=== PATIENT | female | born 1940 | race Caucasian/White ===

== ENCOUNTER 2019-11-24 08:29 | Inpatient (IN) ==
--- NOTE | 2019-11-10 13:33 | ANES ---
Anesthesia Pre Procedure Eval HOME MEDICATIONS Aspirin 81 mg PO DAILY 05/25/16 [Last Taken Unknown] Calcium Carbonate [Calcium] 500 mg PO BID 05/25/16 [Last Taken Unknown] Cholecalciferol (Vitamin D3) [Vitamin D3] 1,000 unit PO BID 05/25/16 [Last Taken Unknown] Multivit-Min/FA/Lycopen/Lutein [Central-Aylin For Seniors] 1 tab PO DAILY 05/25/16 [Last Taken Unknown] acetaminophen 500 mg tablet 1,000 mg PO Q6H PRN tab 04/27/18 [Last Taken Unknown] diphenhydramine 25 mg-acetaminophen 500 mg tablet 2 tab PO HS PRN tab 04/27/18 [Last Taken Unknown] triamcinolone acetonide 0.1 % topical cream 1 applic TP TID 04/27/18 [Last Taken Unknown] clopidogrel 75 mg tablet See Rx Instructions .ROUTE .COMPLEX #90 tablet 11/26/18 [Last Taken Unknown] folic acid 0.8 mg capsule 0.8 mg PO DAILY cap 12/21/18 [Last Taken Unknown] methotrexate sodium 2.5 mg tablet 12.5 mg PO QWEEK tab 12/21/18 [Last Taken Unknown] atorvastatin 40 mg tablet See Rx Instructions .ROUTE .COMPLEX #30 tablet 07/22/19 [Last Taken Unknown] tramadol 50 mg tablet 50 mg PO Q4H PRN tab 07/27/19 [Last Taken Unknown] alendronate 70 mg tablet See Rx Instructions .ROUTE .COMPLEX #4 tablet 08/11/19 [Last Taken Unknown] amlodipine 5 mg tablet See Rx Instructions .ROUTE .COMPLEX #90 tablet 08/11/19 [Last Taken Unknown] lisinopril 40 mg tablet 40 mg PO DAILY #30 tab 10/08/19 [Last Taken Unknown] levothyroxine 75 mcg tablet 75 mcg PO DAILY #60 tab 10/11/19 [Last Taken Unknown] Allergies/Adverse Reactions: Allergies Allergy/AdvReac Type Severity Reaction Status Date / Time oxycodone HCl [From Percocet] Allergy Mild Itching Verified 07/28/19 09:54 adhesive tape AdvReac Severe Blisters Verified 11/10/19 08:52 Sulfa (Sulfonamide AdvReac Mild rash Verified 07/28/19 09:54 Antibiotics) - Planned Procedure Planned Procedure: LT Arthroplasty Total Hip Medication List Reviewed:: Yes Allergies Verified: Yes Medical History (Last Reviewed 11/10/19 @ 13:31 by Jareth Rivera CRNA) Total replacement of hip (Chronic) Incontinence (Chronic) Onset Date: ~12/23/15 Upper back pain (Chronic) Onset Date: ~12/23/15 Rheumatoid arthritis (Chronic) Onset Date: Unknown Peripheral vascular disease (Chronic) Onset Date: Unknown Osteoporosis (Chronic) Onset Date: ~09/16/17 Osteoarthritis (Chronic) Onset Date: ~05/2013 Hypothyroidism (Chronic) Onset Date: Unknown Hypertension (Chronic) Onset Date: ~09/10/13 Hyperlipidemia (Chronic) Onset Date: Unknown High risk medication use (Chronic) Onset Date: ~12/23/15 CVA (cerebral vascular accident) (Chronic) Onset Date: ~2009 x 4 Abnormal mammogram of left breast (Chronic) Onset Date: ~06/08/15 Compression fracture Onset Date: Unknown T12 Hearing loss 50% with hearing aids Influenza vaccine refused wants to receive at a later date 06/29/19. BOBBY [facility] Surgical History (Last Reviewed 11/10/19 @ 13:31 by Jareth Rivera CRNA) H/O colonoscopy Onset Date: Unknown History of hysterectomy Onset Date: ~1974 History of kyphoplasty Onset Date: ~10/02/11 History of total right hip replacement Onset Date: ~03/21/14 Hx of appendectomy Onset Date: ~1949 S/P foot surgery, left Onset Date: ~1988 bilateral 2nd metatarsal head resections Family History (Last Reviewed 11/10/19 @ 13:31 by Jareth Rivera CRNA) Father Cancer prostate, bladder Hyperlipemia Hypertension Arthritis Grandmother Cancer breast Mother Diabetes CHF (congestive heart failure) - Family Anesthesia History Family History:: no untoward family reactions to anesthesia, no familial bleeding tendencies, no family history of clotting disorders, no family history of premature - Airway/Neck/Teeth Within Normal Limits:: Yes Denture Type: Full upper, Partial lower Mallampatti Score: 2 Thyromental (T-M) distance: > 6 cm Mandibulo Hyoid distance: > 3 cm - Respiratory Smoking Status: Never smoker Discussed smoking cessation including day of surgery: No Sleep Apnea currently treated: No Sleep Apnea by current assessment: No Discussed Risks/Treatment of HOANG: No - Cardiovascular Tolerate Activity: Fair Heart Sounds: S1 & S2, Regular - Anesthesia Assessment and Plan ASA Class: PS, III Anesthesia Type Plan: Block - Left ultrasound guided adductor canal nerve block for postop analgesia, Spinal
[~2019-11-24 08:29] MED LIST: MORPHINE SULFATE 15 MG TABLET.SA PO PRN; ROPIVACAINE HCL/PF 100 MG, EPINEPHrine 0.2 MG, KETOROLAC TROMETHAMINE 30 MG in NORMAL S... IJ PRN; TRANEXAMIC ACID 1,000 MG in NORMAL SALINE 100 ML IV PRN; ceFAZolin SODIUM 1 GM VIAL IV PRN
[2019-11-24] MEDS ORDERED: MIDAZOLAM HCL/PF 1 MG/ML VIAL ONE (08:56)
[2019-11-24] MEDS ORDERED: ONDANSETRON HCL/PF 2 MG/ML VIAL ONE (08:57)
[2019-11-24] MEDS ORDERED: DEXAMETHASONE SODIUM PHOSPHATE 10 MG/ML VIAL ONE (08:57)
[2019-11-24] MEDS ORDERED: BUPIVACAINE HCL/PF 10 ML VIAL ONE (08:57)
[2019-11-24] MEDS ORDERED: PROPOFOL VIAL IV ONE (08:57)
[2019-11-24] MEDS ORDERED: EPINEPHrine 1 MG/ML AMPUL ONE (08:58)
[2019-11-24 09:01] LABS: Hematocrit 33.3 % (37.0-47.0); Hemoglobin 9.4 gm/dL (12.5-16.0); Mean Cell Volume 82.8 fl (78-100); Mean Corpuscular Hemoglobin 23.4 pg (27-31); Mean Corpuscular Hgb Conc 28.2 g/dl (32-36); Mean Platelet Volume 8.8 fl (8-12.5); Neutrophil # 4.1 K/mm3 (1.3-6.0); Neutrophil % 63.5 % (42-75.0); Platelet Count 446 K/mm3 (150-450); Red Blood Count 4.02 M/mm3 (4.2-5.4); Red Cell Distribution Width 20.4 % (11.5-14.0); White Blood Count 6.4 K/mm3 (4.0-10.5)
[2019-11-24] MEDS ORDERED: ceFAZolin SODIUM 1 GM VIAL ONE ×2 (09:04→10:40)
[2019-11-24] MEDS: RINGER'S SOLUTION,LACTATED 1,000 ML IV PRN ×2 (09:29→11:15)
[2019-11-24] MEDS ORDERED: MAG HYDROX/ALUMINUM HYD/SIMETH 30 ML UDC PO PRN (12:18)
[2019-11-24] MEDS ORDERED: diphenhydrAMINE HCL 50 MG/ML VIAL IV PRN (12:18)
[2019-11-24] MEDS ORDERED: ONDANSETRON HCL/PF 2 MG/ML VIAL IV PRN (12:18)
[2019-11-24] MEDS ORDERED: MORPHINE SULFATE 2 MG/ML DISP.SYRIN IV PRN (12:18)
[2019-11-24] MEDS ORDERED: MORPHINE SULFATE 10 MG/0.5 ML SYRINGE PO PRN (12:18)
[2019-11-24] MEDS ORDERED: MAGNESIUM HYDROXIDE 30 ML UDC PO PRN (12:18)
--- NOTE | 2019-11-24 12:26 | OR ---
Operative Report - Dictated Report Narrative: Date: 11/24/2019 Preoperative diagnosis: Left hip degenerative joint disease. Postoperative diagnosis: Left hip degenerative joint disease. Procedure: Left total hip arthroplasty. Surgeon: Colby Miller M.D. Compression Molding Machine Setter: Manuel Jeffries PA-C (provided an essential set of skilled, educated and assisted with transfer, positioning, prepping, draping, manipulation, traction, irrigation, suturing, and placement of dressings all of which cannot be performed by the available surgical crew) Anesthesia: Spinal and local periarticular joint injection. Complications: None Specimens: Bone. Estimated blood loss: 100 milliliters. Retained implants: Depuy [place] size 5 femoral stem standard offset. Size 50 millimeter outside diameter 3-hole Lincoln Gription acetabular cup. 50 millimeter outside by 32 millimeter inside diameter highly cross-linked acetabular liner. 32 millimeter diameter +5 millimeter cobalt chromium femoral head. Cancellous 6.5mm screw 30 millimeter length Indications: Mrs. Lazo is a 79-year-old female who has had longstanding left hip pain and arthrosis. This patient was followed in my clinic for period of time with significant complaints of left hip pain consistent with arthritic changes. She failed conservative measures including but not limited to activity modification, passage of time, medications, and other conservative measures. Patient wished to proceed with surgical treatment. The risks, benefits, and alternatives were discussed in clinic. The risks of , blood clots, bleeding, infection, nerve/tendon blood vessel/ injury, malposition of components, dislocation and/or instability of joint, intraoperative fracture, postoperative limited range of motion, persistent pain, failure of components, and need for additional procedures. Patient wished to proceed. Consent was obtained after answering all questions. Procedure: After marking the correct extremity on the floor, the patient was taken to the operating room. A timeout was performed. IV antibiotics consisting of Ancef were administered prior to the procedure. A spinal anesthetic was induced by anesthesia. A Louise catheter was inserted. The patient was then transitioned to a lateral position on a well-padded pegboard. An axillary roll was placed. The head was in neutral position. The non- operative down leg was well-padded with SCD and MAYTE hose in place. The arms were supported and padded to protect from any undue pressure on the bony prominences and nerves. A well-padded anterior and posterior pelvic and chest posts were secured in order to maintain a stable position of the pelvis. This was placed so that the pelvis was perpendicular to the floor. The body was in line with the pelvis. Once it was felt that we had protected all the bony prominences and the patient was well secured with a safety belt as well, the leg was pre-scrubbed with alcohol, prepped and draped in a standard sterile fashion. A standard anterior lateral hip incision was marked out over the greater trochanter. Ioban drapes were then placed. The skin incision was then made. Sharp dissection with a scalpel utilizing cautery for hemostasis was carried out down to the gluteus and iliotibial band fascia. This was split in line with the skin incision. The greater trochanter bursa was excised. The anterior and posterior margins of the abductor tendon were identified. The anterior 1/2-1/3 of the tendon was tagged and reflected off the greater trochanter leaving a sleeve of tendon for repair at the completion of the case. This exposed the underlying hip joint capsule. A limb length stitch was placed in the skin and referencedd off a marifer on the greater trochanter for evaluation of intraoperative limb lengths. An inverted T-type capsulotomy was made extending this up to the brim of the acetabulum. Using Homans to assist with elevation of the soft tissues off the anterior, superior, and inferior aspects of the femoral neck, the hip was then placed in a figure 4 position and the femoral head was dislocated. With the leg in an externally rotated and adducted position, the cutting flag was utilized in order to marifer for a standard femoral neck cut approximately a fingerbreadth above the level of the lesser trochanter. This was done with reference to pre-operative films and overall alignment. This was done while protecting the surrounding soft tissues with Homans. The femoral head was then removed and sized for guidance on preparation of the acetabulum. It was noted that there was loss of articular cartilage on both the femoral head and weightbearing portions of the acetabulum. We then returned the leg to the table and turned our attention to the acetabulum. While protecting the surrounding soft tissues, the labrum and remaining tissue in the fovea were excised using a scalpel and cautery. A series of reamers up to size 50 millimeter were utilized to prepare the acetabulum. The final reamer had good purchase and exposed the bleeding subchondral bone. The acetabulum was then thoroughly irrigated ensuring that all bony and cartilaginous materials were removed, and the final acetabular shell was impacted into place. This was placed in approximately 45 degrees of abduction and 20 degrees of anteversion utilizing the outrigger and body axis for alignment. This had a good press fit. 1 6.5mm cancellous screw was placed in the superior posterior quadrant of the acetabulum. The shell was then thoroughly irrigated and the final polyethylene was impacted into place ensuring that it seated completely. This was then protected with a sponge while we returned our attention to the femur. With the leg in a figure 4 position, utilizing Homans for soft tissue protection, a box cutting osteotome, followed by Charnley awl, followed by serial reamers and broaches were utilized in order to prepare the femur. It was found that a size 5 broach gave good axial and rotational stability. The calcar reamer was utilized in order to clean up the cut edges. The proximal femur was visualized to ensure that there were no signs of fracture. A series of heads and necks were trialed. It was found that a standard offset neck and a + 5 femoral head gave good overall stability. There was minimal longitudinal instability. With the leg in the position of sleep, the femoral head was well covered. Hip range of motion was able to reach full extension and external rotation to greater than 75 degrees prior to impingement along the posterior acetabulum. The hip was able to be flexed to greater than 90 degrees with internal rotation greater than 60 degrees prior to anterior impingement. The limb lengths were near equal based on comparison to the contralateral side and the prior placed limb length stitch. At this point it was felt these were the appropriately sized femoral components as well as neck and femoral head. The trial implants were removed. The femur was thoroughly irrigated. The final implants were impacted into place, and the hip was reduced. After ensuring that there was no damage to the proximal femur, the standard periarticular joint injection of ropivacaine, Toradol, and epinephrine were injected into the joint capsule and surrounding soft tissues. Anesthesia then administered intravenous tranexamic acid. The capsule was repaired with a single interrupted #1 Vicryl. The abductor tendon was repaired to the greater trochanter utilizing #5 Ethibond through drill holes. This was oversewn with #1 Vicryl. The fascia was closed with interrupted #1 Vicryl and a running strata fix barbed suture. The wounds were thoroughly irrigated as we closed in layers. The deep and subcutaneous fat layers were closed with 0 and 3-0 Vicryl respectively. The subcutaneous tissue was closed with a running 3-0 Vicryl and the skin ray. All sponge, needle, blade, and instrument counts were correct prior to closing the wounds. Sterile dressings consisting of xeroform, 4 x 4's, and Tegaderm were applied. The patient was awoken and transferred to her hospital bed and then to the postanesthesia care unit in stable condition. Postoperative condition: The plan is to admit to the medical/surgical inpatient floor postoperatively. There will be a projected 1 to 3 day hospital stay. Postoperatively 24 hours of IV antibiotics, pain control, physical therapy, occupational therapy, and medical comanagement will be utilized. Patient will be weightbearing as tolerated with anterior hip precautions. Postoperative films will be obtained in the recovery room.
--- NOTE | 2019-11-24 12:39 | ANES ---
Post Anesthesia Discharge - Transfer of Care Transfer of Care handoff given to nurse: Yes - Discharge from PACU Discharge from PACU when meets criteria: Yes - Awake and comfortable.
[2019-11-24] MEDS: DEXTROSE 5%-LACTATED RINGERS 1,000 ML IV PRN ×2 (13:25→21:25)
[2019-11-24] MEDS: TRIAMCINOLONE ACETONIDE 15 APPL TUBE TP SCH ×2 (14:23→20:56)
[2019-11-24] MEDS: ceFAZolin SODIUM 1 GM in DEXTROSE 5 % IN WATER 100 ML IV SCH ×4 (14:26→20:53)
[2019-11-24] MEDS: HYDROcodone/ACETAMINOPHEN 1 EACH TABLET PO PRN ×2 (15:27→19:20)
--- NOTE | 2019-11-24 15:58 | ANES ---
Post Anesthesia Assessment - Vital Signs Vitals: Last Vital Signs Temp 36.5 C 11/24/19 13:00 Pulse 74 11/24/19 13:00 Resp 16 11/24/19 13:00 BP 132/60 11/24/19 13:00 Pulse Ox 95 11/24/19 13:00 Airway Patency: Normal - Mental Status Level Of Consciousness: Awake, Alert, Appropriate - Pain Level Pain Score: 5 - N/V Assessment Nausea/Vomiting Presence: None Dehydration:: No
[2019-11-24] MEDS: SENNOSIDES/DOCUSATE SODIUM 1 TAB TABLET PO SCH (20:57)
[2019-11-24] MEDS: CALCIUM CARBONATE 500 MG TAB.CHEW PO SCH (20:58)
[2019-11-24] MEDS: ROSUVASTATIN CALCIUM 20 MG TABLET PO SCH (20:58)
[2019-11-24] MEDS: CHOLECALCIFEROL 1,000 UNIT CAPSULE PO SCH (20:59)
[2019-11-25] MEDS: HYDROcodone/ACETAMINOPHEN 1 EACH TABLET PO PRN ×8 (00:08→21:59)
[2019-11-25] MEDS: ZOLPIDEM TARTRATE 5 MG TABLET PO PRN (00:09)
[2019-11-25] MEDS: ceFAZolin SODIUM 1 GM in DEXTROSE 5 % IN WATER 100 ML IV SCH ×2 (02:03)
[2019-11-25 06:30] LABS: Hematocrit 25.7 % (37.0-47.0); Mean Cell Volume 81.8 fl (78-100); Mean Corpuscular Hemoglobin 23.2 pg (27-31); Mean Corpuscular Hgb Conc 28.4 g/dl (32-36); Platelet Count 402 K/mm3 (150-450); Red Blood Count 3.14 M/mm3 (4.2-5.4); Red Cell Distribution Width 19.9 % (11.5-14.0); White Blood Count 12.2 K/mm3 (4.0-10.5)
[2019-11-25 06:43] LABS: Anion Gap 14.5 mmol/L (6.8-13.8); BUN/Creatinine Ratio 15.1 (9.0-21.6); Calcium * 8.1 mg/dL (7.9-10.9); Carbon Dioxide 21.8 mmol/L (24-32.6); Estimated Creat Clear 46.4; Potassium 4.3 mmol/L (3.4-4.6)
[2019-11-25 06:54] LABS: Hemoglobin 7.3 gm/dL (12.5-16.0)
[2019-11-25] MEDS: LEVOTHYROXINE SODIUM 75 MCG TABLET PO SCH (07:53)
[2019-11-25] MEDS: MULTIVIT-MIN/FA/LYCOPEN/LUTEIN 1 TAB TABLET PO SCH (09:21)
[2019-11-25] MEDS: LISINOPRIL 40 MG TABLET PO SCH (09:21)
[2019-11-25] MEDS: CHOLECALCIFEROL 1,000 UNIT CAPSULE PO SCH ×2 (09:21→20:54)
[2019-11-25] MEDS: FOLIC ACID 0.4 MG TABLET PO SCH (09:21)
[2019-11-25] MEDS: CALCIUM CARBONATE 500 MG TAB.CHEW PO SCH ×2 (09:21→20:55)
[2019-11-25] MEDS: TRIAMCINOLONE ACETONIDE 15 APPL TUBE TP SCH ×2 (09:22→17:00)
[2019-11-25] MEDS: FERROUS SULFATE PO SCH (09:32)
[2019-11-25] MEDS: ENOXAPARIN SODIUM 40 MG/0.4 ML SYRG SC SCH (11:54)
--- NOTE | 2019-11-25 12:45 | PN ---
Subjective - Date and Time Seen Date: 11/25/19 Time: 07:45 Subjective Narrative: Subjective: Reports no significant concerns. She has not worked with therapy yet. Pain is well-controlled. Voiding without any complications. Tolerating by mouth intake. Denies any nausea or vomiting. Denies calf pain. Slept well. Physical exam: Alert and oriented to person, place and time Left lower extremity: Palpable dorsalis pedis pulse. Sensation grossly intact to light touch. Dressings clean and dry. Able to flex and extend ankle and toes. No excessive drainage. Calf and thigh are soft and nontender. Assessment: Postop day 1 status post left total hip arthroplasty. Plan: Due to the need for pain control, post-operative limited mobility, protection of the surgical site and joint, monitoring of the wound, and the management of chronic medical conditions, she requires continued inpatient care. Continue with physical and occupational therapy weightbearing as tolerated. Continue with anticoagulation. 24 hours postoperative prophylactic antibiotics. Pain control with goal to rely on oral medications. Continue bowel regimen. Will need 6 weeks with walker or assitive device to protect joint while ambulating during the recovery process. Discharge planning. Discontinue Louise catheter. She has noted postoperative anemia combined with preoperative anemia which would likely increase in the next 24 to 48 hours and thus I am recommending a transfusion today. Repeat hemogram in a.m. in order to monitor for response to transfusion. Objective - Vitals Vitals: Last Vital Signs Temp 36.9 C 11/25/19 09:00 Pulse 93 11/25/19 09:21 Resp 18 11/25/19 09:00 BP 137/70 11/25/19 09:21 Pulse Ox 98 11/25/19 02:58 - Abnormal Lab Findings Abnormal Lab Findings: Abnormal Lab Results 11/25/19 11/25/19 11/25/19 Range/Units 06:26 06:26 08:13 WBC 12.2 H D (4.0-10.5) K/mm3 RBC 3.14 L (4.2-5.4) M/mm3 Hgb 7.3 L* D (12.5-16.0) gm/dL Hct 25.7 L (37.0-47.0) % MCH 23.2 L (27-31) pg MCHC 28.4 L (32-36) g/dl RDW 19.9 H (11.5-14.0) % Carbon Dioxide 21.8 L (24-32.6) mmol/L Anion Gap 14.5 H (6.8-13.8) mmol/L Crossmatch See Detail Cauti Physician Documentation - Urinary Catheter Management Urethral (Louise) Date of Insertion: 11/24/19 Time of Insertion: 10:15 Assessment/Plan - Problems/Diagnosis (1) LOVE (dyspnea on exertion) Problem: Acute (2) CVA (cerebral vascular accident) Problem: Chronic Qualifiers: (3) HLD (hyperlipidemia) Problem: Chronic Qualifiers: (4) HTN (hypertension) Problem: Chronic Qualifiers: (5) Hearing loss Problem: Chronic Qualifiers: (6) Hypothyroidism Problem: Chronic Qualifiers: (7) Incontinence Problem: Chronic (8) Osteoporosis Problem: Chronic (9) PVD (peripheral vascular disease) Problem: Chronic (10) Rheumatoid arthritis Problem: Chronic Qualifiers: (11) Total replacement of hip Problem: Acute (12) Acute on chronic blood loss anemia Problem: Acute
[2019-11-25] MEDS: ROSUVASTATIN CALCIUM 20 MG TABLET PO SCH (20:54)
[2019-11-25] MEDS: SENNOSIDES/DOCUSATE SODIUM 1 TAB TABLET PO SCH (20:55)
[2019-11-26] MEDS: HYDROcodone/ACETAMINOPHEN 1 EACH TABLET PO PRN ×3 (00:01→08:31)
[2019-11-26] MEDS: ZOLPIDEM TARTRATE 5 MG TABLET PO PRN (00:02)
[2019-11-26 06:42] LABS: Hematocrit 37.4 % (37.0-47.0); Hemoglobin 11.5 gm/dL (12.5-16.0); Mean Cell Volume 82.6 fl (78-100); Mean Corpuscular Hemoglobin 25.4 pg (27-31); Mean Corpuscular Hgb Conc 30.7 g/dl (32-36); Platelet Count 444 K/mm3 (150-450); Red Blood Count 4.53 M/mm3 (4.2-5.4); Red Cell Distribution Width 19.6 % (11.5-14.0); White Blood Count 12.3 K/mm3 (4.0-10.5)
[2019-11-26] MEDS: LEVOTHYROXINE SODIUM 75 MCG TABLET PO SCH (07:21)
[2019-11-26] MEDS: FOLIC ACID 0.4 MG TABLET PO SCH (08:32)
[2019-11-26] MEDS: MULTIVIT-MIN/FA/LYCOPEN/LUTEIN 1 TAB TABLET PO SCH (08:32)
[2019-11-26] MEDS: LISINOPRIL 40 MG TABLET PO SCH (08:33)
[2019-11-26] MEDS: CHOLECALCIFEROL 1,000 UNIT CAPSULE PO SCH ×2 (08:33→21:06)
[2019-11-26] MEDS: CALCIUM CARBONATE 500 MG TAB.CHEW PO SCH ×2 (08:34→21:07)
[2019-11-26] MEDS: FERROUS SULFATE PO SCH (08:35)
[2019-11-26] MEDS: TRIAMCINOLONE ACETONIDE 15 APPL TUBE TP SCH ×3 (08:36→19:46)
--- NOTE | 2019-11-26 09:27 | PN ---
Subjective - Date and Time Seen Date: 11/26/19 Time: 09:22 Subjective Narrative: Patient reports that she does not feel she has good pain control. She states when she gets up with therapy she is having difficulty getting going. Therapy reports when she is moving she does pretty well. Patient reports she did have a rough night and did have a little bit of confusion in the night but that is resolved. She reports no stomach problems and is eating well. Objective Objective Narrative: Patient currently sitting in chair. She is dressed. She is neurovascular intact left lower extremity. She is able to plantarflex and dorsiflex ankle. Alert oriented and cooperative exam. Does not appear in any distress. - Vitals Vitals: Last Vital Signs Temp 37.3 C 11/26/19 02:17 Pulse 103 H 11/26/19 08:33 Resp 16 11/26/19 02:17 BP 154/76 H 11/26/19 08:33 Pulse Ox 93 11/26/19 02:17 - Abnormal Lab Findings Abnormal Lab Findings: Abnormal Lab Results 11/25/19 11/26/19 Range/Units 08:13 06:37 WBC 12.3 H (4.0-10.5) K/mm3 Hgb 11.5 L (12.5-16.0) gm/dL MCH 25.4 L (27-31) pg MCHC 30.7 L (32-36) g/dl RDW 19.6 H (11.5-14.0) % Crossmatch See Detail - Exam Constitutional: Present: Alert, Oriented x3, Cooperative, No distress Cauti Physician Documentation - Urinary Catheter Management Urethral (Louise) Date of Insertion: 11/24/19 Time of Insertion: 10:15 Assessment/Plan - Problems/Diagnosis (1) Status post total hip replacement, left Problem: Acute Narrative: Patient and family decided that they would like to get into a [facility] for skilled care. Patient has been somewhat slow to progress. special services coordinator is going to work on placement. Continue physical therapy. Continue pain control I will modify her pain medicines today. Continue anticoagulation. With regards to her acute blood loss anemia she did get a transfusion and her hemoglobin has improved to 11.5. She does not appear to be symptomatic at this point time. Most likely she will not obtain placement in alf over the weekend and may be here through Friday. (2) Acute blood loss anemia Problem: Acute (3) HTN (hypertension) Problem: Chronic Qualifiers: (4) PVD (peripheral vascular disease) Problem: Chronic (5) Hypertension Problem: Chronic (6) Hyperlipidemia Problem: Chronic
[2019-11-26] MEDS ORDERED: oxyCODONE HCL/ACETAMINOPHEN 1 TAB TABLET PO PRN (09:29)
[2019-11-26] MEDS: MORPHINE SULFATE 10 MG/0.5 ML SYRINGE PO PRN ×3 (11:32→21:19)
[2019-11-26] MEDS: ENOXAPARIN SODIUM 40 MG/0.4 ML SYRG SC SCH (11:34)
[2019-11-26] MEDS: SENNOSIDES/DOCUSATE SODIUM 1 TAB TABLET PO SCH (21:06)
[2019-11-26] MEDS: ROSUVASTATIN CALCIUM 20 MG TABLET PO SCH (21:07)
[2019-11-27] MEDS: MORPHINE SULFATE 10 MG/0.5 ML SYRINGE PO PRN ×5 (02:40→19:38)
[2019-11-27] MEDS: ACETAMINOPHEN 500 MG TABLET PO PRN ×2 (02:42→19:37)
[2019-11-27] MEDS: LEVOTHYROXINE SODIUM 75 MCG TABLET PO SCH (07:38)
[2019-11-27] MEDS: MULTIVIT-MIN/FA/LYCOPEN/LUTEIN 1 TAB TABLET PO SCH (08:09)
[2019-11-27] MEDS: CHOLECALCIFEROL 1,000 UNIT CAPSULE PO SCH ×2 (08:09→20:56)
[2019-11-27] MEDS: FOLIC ACID 0.4 MG TABLET PO SCH (08:09)
[2019-11-27] MEDS: FERROUS SULFATE PO SCH (08:09)
[2019-11-27] MEDS: CALCIUM CARBONATE 500 MG TAB.CHEW PO SCH ×2 (08:09→20:56)
[2019-11-27] MEDS: LISINOPRIL 40 MG TABLET PO SCH (08:10)
[2019-11-27] MEDS: TRIAMCINOLONE ACETONIDE 15 APPL TUBE TP SCH ×4 (08:11→17:14)
--- NOTE | 2019-11-27 10:35 | PN ---
Subjective - Date and Time Seen Date: 11/27/19 Time: 10:31 Subjective Narrative: No events overnight. Pain controlled. Progressing well with PT. Objective - Vitals Vitals: Last Vital Signs Temp 36.9 C 11/27/19 08:32 Pulse 80 11/27/19 08:32 Resp 18 11/27/19 08:32 BP 132/68 11/27/19 08:32 Pulse Ox 94 11/27/19 08:32 - Exam Exam Narrative: Gen: Alert, oriented x4 Resp: breathing non-labored on room air MSK: LLE--> dressing with scant amount of SS drainage, minimal pain with passive motion of hip, SILT, distal cap refill brisk Cauti Physician Documentation - Urinary Catheter Management Urethral (Louise) Date of Insertion: 11/24/19 Time of Insertion: 10:15 Assessment/Plan - Problems/Diagnosis (1) Status post total hip replacement, left Problem: Acute Narrative: 79 yo F s/p L total hip arthroplasty. -WBAT, anterior precautions. -reg diet -oral pain meds -PT/OT -DVT ppx: mikhail, SCDs, paula raines -dispo: planning for d/c to SNF on Friday
[2019-11-27] MEDS: ENOXAPARIN SODIUM 40 MG/0.4 ML SYRG SC SCH (11:15)
[2019-11-27] MEDS: ROSUVASTATIN CALCIUM 20 MG TABLET PO SCH (20:55)
[2019-11-27] MEDS: SENNOSIDES/DOCUSATE SODIUM 1 TAB TABLET PO SCH (20:55)
[2019-11-28] MEDS: MORPHINE SULFATE 10 MG/0.5 ML SYRINGE PO PRN ×6 (05:01→22:54)
[2019-11-28] MEDS: LEVOTHYROXINE SODIUM 75 MCG TABLET PO SCH (07:32)
[2019-11-28] MEDS: CALCIUM CARBONATE 500 MG TAB.CHEW PO SCH ×2 (08:19→20:45)
[2019-11-28] MEDS: CHOLECALCIFEROL 1,000 UNIT CAPSULE PO SCH ×2 (08:19→20:46)
[2019-11-28] MEDS: MULTIVIT-MIN/FA/LYCOPEN/LUTEIN 1 TAB TABLET PO SCH (08:19)
[2019-11-28] MEDS: LISINOPRIL 40 MG TABLET PO SCH (08:19)
[2019-11-28] MEDS: TRIAMCINOLONE ACETONIDE 15 APPL TUBE TP SCH ×3 (08:20→17:02)
[2019-11-28] MEDS: FOLIC ACID 0.4 MG TABLET PO SCH (08:20)
[2019-11-28] MEDS: FERROUS SULFATE PO SCH (08:20)
--- NOTE | 2019-11-28 11:11 | PN ---
Subjective - Date and Time Seen Date: 11/28/19 Time: 11:10 Subjective Narrative: Patient reports no acute events. She rates her pain as a 45/10. She notes her pain is worse with weightbearing better with rest. She otherwise has no significant complaints. Objective - Vitals Vitals: Last Vital Signs Temp 37.5 C 11/28/19 10:37 Pulse 84 11/28/19 10:37 Resp 16 11/28/19 10:37 BP 115/60 11/28/19 10:37 Pulse Ox 94 11/28/19 10:37 - Exam Constitutional: Present: Alert, Cooperative Extremity: Present: other - LLE--> sensation intact light touch, 5/5 ankle plantarflexion dorsiflexion, sensation intact light touch, bandages clean/dry/intact, diffuse tenderness about left hip Cauti Physician Documentation - Urinary Catheter Management Urethral (Louise) Date of Insertion: 11/24/19 Time of Insertion: 10:15 Assessment/Plan Plan Narrative: 79 yo F s/p L total hip arthroplasty. -WBAT, anterior precautions. -reg diet -oral pain meds -PT/OT -DVT ppx: Emily elizondo, paula raines -dispo: planning for d/c to SNF on Friday - Problems/Diagnosis (1) Status post total hip replacement, left Problem: Acute
[2019-11-28] MEDS: ENOXAPARIN SODIUM 40 MG/0.4 ML SYRG SC SCH (11:30)
[2019-11-28] MEDS: ACETAMINOPHEN 500 MG TABLET PO PRN ×2 (14:36→20:50)
[2019-11-28] MEDS: SENNOSIDES/DOCUSATE SODIUM 1 TAB TABLET PO SCH (20:45)
[2019-11-28] MEDS: ROSUVASTATIN CALCIUM 20 MG TABLET PO SCH (20:46)
[2019-11-29] MEDS: MORPHINE SULFATE 10 MG/0.5 ML SYRINGE PO PRN ×2 (01:04→07:30)
[2019-11-29] MEDS: LEVOTHYROXINE SODIUM 75 MCG TABLET PO SCH (07:30)
--- NOTE | 2019-11-29 09:04 | DS ---
(1) Status post total hip replacement, left Problem: Acute (2) Acute blood loss anemia Problem: Acute (3) HTN (hypertension) Problem: Chronic Qualifiers: (4) PVD (peripheral vascular disease) Problem: Chronic (5) Hypertension Problem: Chronic (6) Hyperlipidemia Problem: Chronic Date of Discharge:: 11/29/19 Hospital Course: Mrs. Lazo was admitted to the floor after undergoing left total hip arthroplasty. Tolerated this well. Was admitted to the floor postoperatively for 24 hours of IV antibiotics, pain control, medical comanagement, and occupational and physical therapy. OT and PT were consulted to assist with activities of daily living and ambulation. Was made weightbearing as tolerated with range of motion as tolerated utilizing anterior hip precautions. Pain was initially controlled with IV regimen. This was transitioned to oral once tolerating a by mouth intake. Was resumed on home diet and medications. Had a Louise catheter inserted and the operating room which was discontinued on postoperative day 1. Lovenox SCD and MAYTE hose were utilized for DVT prophylaxis. Vital signs remained stable to the hospital course. Serial labs were obtained which showed a final hemoglobin of 11.5 grams. Patient's initial hemoglobin was 9.4 g preoperatively postop day 1 she was 7.3 g and was therefore transfused. BMP was reviewed and was stable. Physical examination throughout the hospital course showed an extremity that had sensation that was intact to light touch, palpable pulses, a benign wound, motor intact to the toes, ankle, and knee. Once an oral pain regimen was tolerated and physical therapy goals were met, it was felt that they were stable for discharge to home. Instructions: Continue with weightbearing as tolerated and range of motion as tolerated. She is to keep wound clean and dry. If you note any drainage or for comfort you can cover with dry gauze and tape. Change every 2-3 days as needed. Continue with physical therapy. Resume home diet. Report any fever over 101.5 Fahrenheit, uncontrolled pain, increased drainage, foul odor of drainage, new or increased calf pain or shortness of breath, or any other significant complaints. A 325mg dialy aspirin will be started after finishing anticoagulation if not allergic. Continue with MAYTE hose on the operative extremity until instructed otherwise. No driving until instructed otherwise. Follow up in approximately 10-14 days. Procedures Performed: see notes below List Procedures: Left total hip arthroplasty Results and Findings: Lab Pending Results 11/23/19 08:58: WBC 6.4, RBC 4.02 L, Hgb 9.4 L, Hct 33.3 L, MCV 82.8, MCH 23.4 L, MCHC 28.2 L, RDW 20.4 H, Plt Count 446, MPV 8.8, Immature Gran % (Auto) 0.30, Immature Gran # (Auto) 0.02, Neutrophils % 63.5, Lymphocytes % 16.5 L, Monocytes % 14.5 H, Eosinophils % 3.3 H, Basophils % 1.9 H, Nucleated RBC % 0.0, Neutrophils # 4.1, Lymphocytes # 1.06 L, Monocytes # 0.9, Eosinophils # 0.2, Absolute Basophils 0.1 11/25/19 06:26: WBC 12.2 H D, RBC 3.14 L, Hgb 7.3 L* D, Hct 25.7 L, MCV 81.8, MCH 23.2 L, MCHC 28.4 L, RDW 19.9 H, Plt Count 402, MPV 9.0 11/25/19 06:26: Sodium 137, Plasma Sodium 137, Potassium 4.3, Chloride 105, Carbon Dioxide 21.8 L, Anion Gap 14.5 H, BUN 11, Creatinine 0.73, Est GFR (Non- Af Amer) 82 D, BUN/Creatinine Ratio 15.1, Random Glucose 107, Calcium 8.1 11/25/19 08:13: Blood Type O Positive, Antibody Screen Negative, Crossmatch See Detail 11/26/19 06:37: WBC 12.3 H, RBC 4.53, Hgb 11.5 L, Hct 37.4, MCV 82.6, MCH 25.4 L, MCHC 30.7 L, RDW 19.6 H, Plt Count 444, MPV 9.0 Discharge Location: [facility] Disposition: SNF Condition: Good Discharge Activity: Weight bearing, Other - Utilizing wheeled walker with anterior hip precautions Discharge Diet: Low salt, Low fat/chol Referrals: Shanon Maradiaga DO [Primary Care Provider] - Colby Miller MD [Staff Physician] - 12/09/19 9:30 am Problem Oriented Discharge Instructions to Patient/Family: Total Hip Replacement, Care After, [id number] Additional Patient Instructions (free text): Follow up in the with Dr Miller on December 08, at 9:30am. Prescriptions (Any new or edited meds): Aspirin 325 mg PO BID #60 tab Transmission Status: Sent to [facility] Enoxaparin Sodium [Lovenox] 40 mg SC Q24H #2 disp.syrin Transmission Status: Pending to [facility] Morphine Sulfate 1 tab PO Q4H PRN #80 tab PRN Reason: Pain Transmission Status: Sent to [facility] Sennosides/Docusate Sodium [Senokot-S] 2 tab PO HS #30 tab Transmission Status: Pending to [facility] Complete Home Medications List: Complete Home Medication List: Aspirin 81 mg PO DAILY 05/25/16 Calcium Carbonate [Calcium] 500 mg PO BID 05/25/16 Cholecalciferol (Vitamin D3) [Vitamin D3] 1,000 unit PO BID 05/25/16 Multivit-Min/FA/Lycopen/Lutein [Central-Aylin For Seniors] 1 tab PO DAILY 05/25/16 acetaminophen 500 mg tablet 1,000 mg PO Q6H PRN tab 04/27/18 diphenhydramine 25 mg-acetaminophen 500 mg tablet 2 tab PO HS PRN tab 04/27/18 triamcinolone acetonide 0.1 % topical cream 1 applic TP TID 04/27/18 clopidogrel 75 mg tablet See Rx Instructions .ROUTE .COMPLEX #90 tab 11/26/18 folic acid 0.8 mg capsule 0.8 mg PO DAILY cap 12/21/18 methotrexate sodium 2.5 mg tablet 12.5 mg PO QWEEK tab 12/21/18 atorvastatin 40 mg tablet See Rx Instructions .ROUTE .COMPLEX #30 tab 07/22/19 tramadol 50 mg tablet 50 mg PO Q4H PRN tab 07/27/19 lisinopril 40 mg tablet 40 mg PO DAILY #30 tab 10/08/19 levothyroxine 75 mcg tablet 75 mcg PO DAILY #60 tab 10/11/19 ferrous sulfate 134 mg (27 mg iron) tablet 134 mg PO DAILY #60 tab 11/12/19 alendronate 70 mg tablet See Rx Instructions .ROUTE .COMPLEX #4 tab 11/22/19 Aspirin 325 mg PO BID #60 tab 11/29/19 Enoxaparin Sodium [Lovenox] 40 mg SC Q24H #2 disp.syrin 11/29/19 Morphine Sulfate 1 tab PO Q4H PRN #80 tab 11/29/19 Sennosides/Docusate Sodium [Senokot-S] 2 tab PO HS #30 tab 11/29/19
[2019-11-29] MEDS: ACETAMINOPHEN 500 MG TABLET PO PRN (10:04)
[2019-11-29] MEDS: LISINOPRIL 40 MG TABLET PO SCH (10:04)
[2019-11-29] MEDS: MULTIVIT-MIN/FA/LYCOPEN/LUTEIN 1 TAB TABLET PO SCH (10:05)
[2019-11-29] MEDS: TRIAMCINOLONE ACETONIDE 15 APPL TUBE TP SCH (10:05)
[2019-11-29] MEDS: CALCIUM CARBONATE 500 MG TAB.CHEW PO SCH (10:05)
[2019-11-29] MEDS: FOLIC ACID 0.4 MG TABLET PO SCH (10:05)
[2019-11-29] MEDS: FERROUS SULFATE PO SCH (10:05)
[2019-11-29] MEDS: CHOLECALCIFEROL 1,000 UNIT CAPSULE PO SCH (10:05)
[2019-11-29] MEDS: ENOXAPARIN SODIUM 40 MG/0.4 ML SYRG SC SCH (12:25)
[2019-11-29 13:49] VITALS: BP 144/67
== END 2019-11-29 13:20 | DRG 470 ==
LOC: MS 08:29 → EDSTATUS 12:00
PROVIDERS: ADMIT Orthopaedic Surgery; ATTEND Orthopaedic Surgery
CPT/HCPCS: 36415; 73502; 80048; 85025; 85027; 86850; 97110; 97116; 97162; 97165; 97530; 97535; J2405; P9016